=== PATIENT | male | born 1955 | race Caucasian/White ===

== ENCOUNTER 2020-12-29 10:55 | Observation (INO) ==
[2020-12-29] MEDS ORDERED: D5% in Water 1,000 ML IVC PRN (14:09)
[2020-12-29] MEDS ORDERED: *HR* Dextrose 50 % in Water (Vial) 50 ML VIAL IVP PRN (14:09)
[2020-12-29] MEDS ORDERED: Dextrose Gel 15 GM/37.5 ML TUBE PO PRN ×2 (14:09)
[2020-12-29] MEDS ORDERED: Naloxone 0.4 MG/ML INJ IVP PRN (14:15)
[2020-12-29] MEDS ORDERED: Ondansetron 4 MG/2 ML VIAL IVP PRN (14:15)
[2020-12-29] MEDS: Pregabalin 50 MG CAPSULE PO SCH ×2 (15:53→20:37)
[2020-12-29] MEDS: *HR* HYDROcodone/Acet 7.5/325 mg TABLET PO PRN ×2 (15:53→21:56)
[2020-12-29] MEDS ORDERED: Insulin LISPRO 300 UNITS/3 ML VIAL SUBQ SCH ×2 (16:30→21:00)
[2020-12-29] MEDS: *HR* Heparin 5,000 UNIT/ML VIAL SQ SCH (20:36)
[2020-12-29] MEDS: Insulin LISPRO 300 UNITS/3 ML VIAL SUBQ SCH (20:37)
[2020-12-29] MEDS: Insulin DETEMIR 100 UNIT/ML X5UNITS SUBQ SCH (20:41)
[2020-12-30] MEDS ORDERED: *HR* HYDROmorphone 2 MG TABLET PO ONE ×2 (01:01→23:33)
[2020-12-30] MEDS ORDERED: Acetaminophen IV 1,000 MG/100 ML BAG IVPB ONE (03:10)
[2020-12-30] MEDS ORDERED: tiZANidine 4 MG TABLET PO ONE (03:11)
[2020-12-30] MEDS: *HR* Heparin 5,000 UNIT/ML VIAL SQ SCH ×3 (04:35→21:30)
[2020-12-30] MEDS: *HR* HYDROcodone/Acet 7.5/325 mg TABLET PO PRN (04:35)
[2020-12-30 07:55] LABS: Basophils % 0.2 %; Hematocrit 33.9 % (37.5-50.1); Hemoglobin 11.5 g/dL (12.9-16.9); Immature Granulocytes % 0.8 % (0-4); Lymphocytes # 0.5 K/mcL (0.6-4.6); Lymphocytes % 10.7 %; Mean Corpuscular HGB Conc 33.9 g/dL (31.6-35.5); Mean Corpuscular Hemoglobin 30.1 pg (28.0-33.3); Mean Corpuscular Volume 88.7 fL (83.0-100.0); Monocytes # 0.4 K/mcL (0.0-1.3); Monocytes % 8.7 %; Platelet Count 170 K/mcL (140-400); Red Blood Count 3.82 M/mcL (4.19-5.50); Red Cell Distribution Width 14.8 % (11.5-14.5); Segmented Neutrophils % 79.6 %
[2020-12-30 08:13] LABS: BUN/Creatinine Ratio 27 (6-26); Blood Urea Nitrogen 22 mg/dL (8-23); Carbon Dioxide 26 mEq/L (23-29); Chloride 104 mEq/L (98-107); Glucose 296 mg/dL (70-105); Magnesium 2.1 mg/dL (1.6-2.6); Osmolality,Calculated 298 (280-300); Potassium 4.4 mEq/L (3.5-5.1); Sodium 137 mEq/L (136-145); eGFR For African Americans > 60 (> 60); eGFR For Non-African Americans > 60 (> 60)
[2020-12-30] MEDS: Insulin LISPRO 300 UNITS/3 ML VIAL SUBQ SCH ×4 (08:23→21:31)
[2020-12-30] MEDS: Pregabalin 50 MG CAPSULE PO SCH ×3 (08:24→21:30)
[2020-12-30] MEDS ORDERED: *HR* OxyCODONE Immed Rel 5 MG TABLET PO ONE (09:10)
[2020-12-30] MEDS ORDERED: dexAMETHasone 4 MG TABLET PO SCH (10:00)
[2020-12-30] MEDS ORDERED: Morphine Sulfate 2 MG/ML SYRINGE IVP ONE (10:02)
[2020-12-30] MEDS ORDERED: *HR* HYDROmorphone (PF) 1 MG/ML SYRINGE IVP ONE (14:21)
[2020-12-30] MEDS ORDERED: GADOBUTROL 30 MMOL/30 ML VIAL IVP ONE (16:53)
[2020-12-30] MEDS: *HR* OxyCODONE Immed Rel 5 MG TABLET PO PRN ×2 (17:55→21:30)
[2020-12-30] MEDS: Acyclovir 200 MG CAPSULE PO SCH (21:29)
[2020-12-30] MEDS: Insulin DETEMIR 100 UNIT/ML X5UNITS SUBQ SCH (21:30)
[2020-12-30] MEDS ORDERED: Melatonin 3 MG TABLET PO ONE (23:42)
[2020-12-31] MEDS: dexAMETHasone 4 MG TABLET PO SCH ×4 (01:20→20:25)
[2020-12-31] MEDS: *HR* OxyCODONE Immed Rel 5 MG TABLET PO PRN ×6 (03:29→23:35)
[2020-12-31 04:28] LABS: Influenza A PCR Negative (Negative); Influenza B PCR Negative (Negative); Resp. Syncytial Virus PCR Negative (Negative)
[2020-12-31 04:39] LABS: SARS-CoV-2 by PCR (In House) Negative (Negative)
[2020-12-31 05:48] LABS: Hematocrit 35.9 % (37.5-50.1); Immature Granulocytes % 0.8 % (0-4); Lymphocytes # 0.3 K/mcL (0.6-4.6); Lymphocytes % 6.2 %; Mean Corpuscular HGB Conc 33.4 g/dL (31.6-35.5); Mean Corpuscular Hemoglobin 29.7 pg (28.0-33.3); Mean Corpuscular Volume 88.9 fL (83.0-100.0); Mean Platelet Volume 10.9 fL (9.4-12.4); Monocytes # 0.5 K/mcL (0.0-1.3); Monocytes % 10.3 %; Neutrophils # 4.3 K/mcL (1.6-8.9); Platelet Count 187 K/mcL (140-400); Red Blood Count 4.04 M/mcL (4.19-5.50); Red Cell Distribution Width 15.1 % (11.5-14.5); Segmented Neutrophils % 82.7 %; White Blood Count 5.2 K/mcL (4.3-11.1)
[2020-12-31] MEDS: *HR* Heparin 5,000 UNIT/ML VIAL SQ SCH ×3 (05:50→20:37)
[2020-12-31 06:08] LABS: BUN/Creatinine Ratio 34 (6-26); Blood Urea Nitrogen 28 mg/dL (8-23); Calcium 9.1 mg/dL (8.6-10.3); Carbon Dioxide 23 mEq/L (23-29); Chloride 104 mEq/L (98-107); Glucose 254 mg/dL (70-105); Osmolality,Calculated 294 (280-300); Potassium 4.1 mEq/L (3.5-5.1); Sodium 135 mEq/L (136-145); eGFR For African Americans > 60 (> 60); eGFR For Non-African Americans > 60 (> 60)
[2020-12-31] MEDS: Pregabalin 50 MG CAPSULE PO SCH ×3 (08:09→20:25)
[2020-12-31] MEDS: Acyclovir 200 MG CAPSULE PO SCH ×2 (08:09→20:25)
[2020-12-31] MEDS: Insulin LISPRO 300 UNITS/3 ML VIAL SUBQ SCH ×4 (08:19→20:31)
[2020-12-31] MEDS ORDERED: Aspirin Enteric Coated 81 MG Tablet PO SCH (09:00)
[2020-12-31] MEDS ORDERED: Ascorbic Acid 500 MG TABLET PO SCH (09:00)
[2020-12-31] MEDS: *HR* HYDROmorphone (PF) 1 MG/ML SYRINGE IVP PRN ×2 (14:10→20:25)
[2020-12-31 19:07] VITALS: PULSE 58
[2020-12-31] MEDS: Insulin DETEMIR 100 UNIT/ML X5UNITS SUBQ SCH (20:26)
[2021-01-01 00:20] VITALS: BP 179/76; TEMP 97.8; O2SAT 95
[2021-01-01] MEDS: dexAMETHasone 4 MG TABLET PO SCH (01:06)
[2021-01-01] MEDS: *HR* HYDROmorphone (PF) 1 MG/ML SYRINGE IVP PRN (02:29)
== END 2021-01-01 02:38 | disposition short-term general hospital (02) ==
LOC: 3NENU
PROVIDERS: ADMIT Internal Medicine; ATTEND Internal Medicine